=== PATIENT | female | born 1950 | race Hispanic/Latino ===

== ENCOUNTER 2017-06-29 09:13 | Outpatient (CLI) | payer MEDICARE | END 2017-06-29 09:14 | disposition home or self-care (01) | LOC: BICMAMMO 09:13 | PROVIDERS: ATTEND Family Medicine | DX: Z12.31 Encounter for screening mammogram for malignant neoplasm of breast (principal) | CPT/HCPCS: 77063; 77067 ==

== ENCOUNTER 2018-04-05 12:04 | Day surgery (SDC) | payer MEDICARE ==
[2018-04-04 08:25] VITALS: BMI 34.5
--- NOTE | 2018-04-04 22:11 | HP ---
SHORT STAY HISTORY AND PHYSICAL DATE OF ADMISSION: 04/05/2018 HISTORY OF PRESENT ILLNESS: Ms. Nanette Joshi is a very pleasant 67-year-old Latin-Chinese fema le referred to me by colonoscopy for colon cancer screening. When she came to the office, she was having abdominal pain over the last several weeks. The abdominal pain is over the epigastric area. The patient does have nausea. The pain persisted over the last three weeks. The patient ___ __. No history of fever or chills. The patient comes for an EGD for abdominal pain and for a colono scopy for colon cancer screening. ALLERGIES: CODEINE. SOCIAL HISTORY: The patient does not smoke or drink alcohol. MEDICAL ILLNESSES: 1. Hypertension. 2. Hyperlipidemia. 3. Chronic anxiety. 4. Chronic acid reflux. 5. Hyperlipidemia. 6. Osteoarthritis. 7. Coronary artery disease. 8. Peripheral neuropathy. PHYSICAL EXAMINATION: VITAL SIGNS: Pulse is 70, blood pressure 130/70. HEENT: Conjunctivae clear. CARDIOVASCULAR SYSTEM: First and second heart sounds normal. LUNGS: Clear to auscultation. ABDOMEN: Soft. No organomegaly. Abdomen is tender over the epigastric area and periumbilical area. There is no rebound or guarding. EXTREMITIES: Reveal no edema. ADMITTING DIAGNOSIS: A 67-year-old Latin-Chinese female with abdominal pain, nausea over the last t hree weeks. She also has history of colon polyps from before. The patient comes for EGD for abdomin al pain and also colonoscopy for colon cancer screening.
--- NOTE | 2018-04-06 01:34 | OP ---
DATE OF SURGERY: 04/05/2018 OPERATIVE PROCEDURE: Colonoscopy with biopsy. PREOPERATIVE DIAGNOSIS: A 67-year-old Latin-Sing[place]an female underwent colonoscopy for colon cancer s creening. POSTOPERATIVE DIAGNOSES: 1. Diffuse colonic diverticular disease. 2. Small sessile ascending colon polyp. 3. Hemorrhoids. PROCEDURE NOTE: The patient was placed on her left lateral position and was given sedation by Anesth esia department. A rectal exam was done before the scope was advanced into the rectum. No lesions f elt on rectal exam. A Pentax video colonoscope was introduced into the rectum and advanced all the w ay into the cecum. The prep was good. The mucosa appears normal throughout the colon with normal va scular pattern. The appendical orifice, ileocecal valve, cecum, no pathology seen. She has small se ssile ascending colon polyp removed with biopsy forceps. The hepatic flexure, transverse colon, sple florina flexure, descending colon, sigmoid colon, no other lesions seen except for scattered diverticula of the sigmoid colon all the way to the cecum. Rectal hemorrhoids.
--- NOTE | 2018-04-06 08:17 | OP ---
DATE OF PROCEDURE: 04/05/2018 OPERATIVE PROCEDURE: Esophagogastroduodenoscopy with biopsy. PREOPERATIVE DIAGNOSES: A 67-year-old Latin-Tristanian female with chronic acid reflux on omeprazole. She has had abdominal pain, nausea over the last several weeks. She underwent EGD. POSTOPERATIVE DIAGNOSES: 1. Edematous mucosa over the GE junction with esophageal erosion. 2. Otherwise, normal esophagogastroduodenoscopy. PROCEDURE NOTE: The patient was placed on left lateral position and was given sedation by Anesthesia Department. A Pentax video gastroscope under direct vision was passed down the oropharynx, past the GE junction, into the stomach and subsequently into the descending duodenum. The esophageal mucosa appears normal over the upper two-thirds. At the GE junction, the mucosa edematous and polypoid appearing. She also had linear erosion there. Retroflexion failed to show pathology in the fundus or cardia. The gastric body, gastric antrum, no pathology seen. The scope advanced into the duodenal bulb, descending duodenum. No pathology seen. The stomach was decompressed and the scope removed. DISCHARGE PLANNIN. This is a 67-year-old Latin-Tristanian female who came for EGD and colonoscopy. The EGD showed esophageal erosion and esophagitis. The colonoscopy showed a sessile polyp ascending colon. 2. Diffuse colonic diverticular disease. She underwent EGD and biopsy . DISCHARGE RECOMMENDATIONS: 1. Omeprazole 40 once a day. 2. She is advised to call me if she develops abdominal pain, hematochezia, or fever. 3. To come back to clinic in 2 weeks. MTDD
== END 2018-04-05 16:00 | disposition home or self-care (01) ==
LOC: SDC 12:04
PROVIDERS: ATTEND Internal Medicine Gastroenterology
PROC: 0DB48ZX Excision of Esophagogastric Junction, Via Natural or Artificial Opening Endoscopic, Diagnostic (ICD-10-PCS; principal; 2018-04-05)
PROC: 0DBK8ZX Excision of Ascending Colon, Via Natural or Artificial Opening Endoscopic, Diagnostic (ICD-10-PCS; 2018-04-05)
DX: Z12.11 Encounter for screening for malignant neoplasm of colon (principal); D12.2 Benign neoplasm of ascending colon; K57.31 Diverticulosis of large intestine without perforation or abscess with bleeding; K64.9 Unspecified hemorrhoids; K22.10 Ulcer of esophagus without bleeding; K21.9 Gastro-esophageal reflux disease without esophagitis; I10 Essential (primary) hypertension; E78.5 Hyperlipidemia, unspecified; F41.9 Anxiety disorder, unspecified; M19.90 Unspecified osteoarthritis, unspecified site; I25.10 Atherosclerotic heart disease of native coronary artery without angina pectoris; G62.9 Polyneuropathy, unspecified; Z79.82 Long term (current) use of aspirin; Z79.899 Other long term (current) drug therapy; Z88.5 Allergy status to narcotic agent; Z86.010 Personal history of colon polyps
CPT/HCPCS: 88305; 88312; 88313

== ENCOUNTER 2019-06-21 07:55 | Outpatient (CLI) | payer MEDICARE ==
--- NOTE | 2019-06-21 10:38 | MRI ---
MR of the right wrist without contrast INDICATION: History of right wrist pain for one month with concern for possible ganglion cyst. TECHNIQUE: Multiplanar multisequence MR images were obtained of the right wrist without IV or intra-a rticular contrast. A surface marker was placed in the region of palpable interest where there is concern for possible ganglion cyst. This was placed on the volar radial aspect of the right wrist at the level of the scaphoid. FINDINGS: No radiographic comparisons are available. There is [id number] radiocarpal joint effusion as well as a mid carpal joint effusion which is nonspecific. There are scattered areas of patchy marrow edema involving the wrist carpus as well as the volar aspect of the distal radius. There are areas of subchondral cystlike abnormality involving the carpal bones, particularly the proximal and distal scaphoid. There is mild fluid distention involving the FDP and FDS tendon sheath proximal to, within and slightly distal to the flexor retinac ulum. The median nerve has a normal appearance. There is also fluid distention involving the tendon sheath of the FPL tendon just distal to the flexor retinaculum. There is mild fluid distention also p resent involving the FCR tendon near the surface marker. No visible ganglion is evident. Mild fluid distention is seen involving the second dorsal extensor compartment. The remaining dorsal compartment s appear within normal limits. The TFC appears intact. The scapholunate, lunotriquetral and extrinsic ligaments appear intact. There is mild first CMC osteoarthrosis. IMPRESSION: 1. Radiocarpal and midcarpal joint effusion with patchy areas of marrow edema and subchondral cystlik e abnormality involving the wrist carpus is suspicious for the presence of an inflammatory arthropathy such as rheumatoid arthritis. Erosive osteoarthritis or possibly crystalline arthropathy could induce a similar appearance. 2. There is suspected reactive tenosynovitis involving the FDP, FDS, FPL and FCR flexor tendons in ad dition to the second dorsal extensor compartment. 3. No ganglion cyst is seen underlying the palpable region of interest. Mild tenosynovitis is seen in volving the FCR tendon near the surface marker. This may be what is being palpated on clinical exam. 4. The TFC is intact. The intrinsic and extrinsic ligaments of the wrist appear intact.
== END 2019-06-21 07:56 | disposition home or self-care (01) ==
LOC: SCSMRI 07:55
PROVIDERS: ATTEND Orthopaedic Surgery
DX: M67.40 Ganglion, unspecified site (principal); M25.431 Effusion, right wrist; R60.0 Localized edema; M65.831 Other synovitis and tenosynovitis, right forearm

== ENCOUNTER 2019-10-08 06:24 | Outpatient (CLI) | payer MEDICARE, OTHER ==
[2019-10-08 17:18] LABS: #Basophils 0.1 thou/uL (0.0-0.2); #Lymphocytes 2.5 thou/uL (1.20-3.40); #Monocytes 0.7 thou/uL (0.11-0.59); #Neutrophils 2.9 thou/uL (1.40-6.50); %Basophils 0.9 % (0.0-1.0); %Eosinophils 0.5 % (0.0-10.0); %Lymphocytes 40.6 % (21.0-51.0); %Monocytes 11.4 % (0.0-10.0); %Neutrophils 46.6 % (42.0-75.0); Hemoglobin 14.1 g/dL (12.0-16.0); Mean Corpuscular HGB CONC 32.3 g/dL (32.0-36.0); Mean Corpuscular Hemoglobin 30.5 pg (27.0-31.0); Mean Corpuscular Volume 94.4 fL (78.0-98.0); Mean Platelet Volume 8.8 fL (7.4-10.4); Platelet Count 246 thou/uL (130-400); RBC Distribution Width 12.3 % (11.5-14.5); Red Blood Cell (RBC) Count 4.61 mill/uL (4.20-5.40); White Blood Cell (WBC) Count 6.1 thou/uL (4.8-10.8)
[2019-10-08 17:43] LABS: Anion Gap 14 mmol/L (10-20); BUN (Urea Nitrogen) 13 mg/dL (9.8-20.1); Calc. Creatinine Clearance 0 mL/min (70-130); Calcium 9.4 mg/dL (7.8-10.44); Carbon Dioxide 25 mmol/L (23-31); Chloride 105 mmol/L (98-107); Estimated GFR-MDRD 68; Glucose 100 mg/dL (83-110); Potassium 4.2 mmol/L (3.5-5.1); Sodium 140 mmol/L (136-145)
[2019-10-09 11:35] LABS: SARS-CoV-2 MS2 Positive; SARS-CoV-2 N Gene Negative; SARS-CoV-2 S Gene Negative; SARS-CoV-2 orf1ab Negative
--- NOTE | 2019-10-09 20:10 | EKG ---
Test Reason : Blood Pressure : / mmHG Vent. Rate : 063 BPM Atrial Rate : 063 BPM P-R Int : 136 ms QRS Dur : 080 ms QT Int : 420 ms P-R-T Axes : 055 051 057 degrees QTc Int : 429 ms Normal sinus rhythm Normal ECG When compared with ECG of 17-OCT-2012 14:40, Vent. rate has decreased BY 47 BPM T wave amplitude has decreased in Anterior leads Confirmed by OMAR HERNANDEZ, SEdwar ([id number]) on 10/09/2019 8:10:23 PM Referred By: JEFF Confirmed By:DR. Tip NELSON MD
== END 2019-10-08 06:25 | disposition home or self-care (01) ==
LOC: LABBT 06:24
PROVIDERS: ATTEND Orthopaedic Surgery
DX: Z01.818 Encounter for other preprocedural examination (principal); Z11.59 Encounter for screening for other viral diseases; G56.01 Carpal tunnel syndrome, right upper limb
CPT/HCPCS: 80048; 85025; 93005; U0003; 87635; 93010

== ENCOUNTER 2019-10-10 07:20 | Day surgery (SDC) | payer MEDICARE ==
--- NOTE | 2019-10-09 13:28 | HP ---
HISTORY OF PRESENT ILLNESS: The patient is a 69-year-old female with a several-month history of pain, tingling and weakness in her right hand without injury. She has had persistent symptoms despite restriction of activities, splinting, and anti-inflammatory medication. PAST MEDICAL HISTORY: The patient has a history of atherosclerotic cardiovascular disease, hypertension, high cholesterol, and osteoarthritis. CURRENT MEDICATIONS: Include, 1. Low-dose aspirin. 2. Metoprolol. 3. Coenzyme Q. 4. Omeprazole. 5. Naproxen. 6. Multivitamins. 7. Gabapentin. ALLERGIES: SHE IS ALLERGIC TO CODEINE. FAMILY HISTORY: Otherwise unremarkable. SOCIAL HISTORY: Otherwise unremarkable. REVIEW OF SYSTEMS: Otherwise unremarkable. PHYSICAL EXAMINATION: GENERAL: Reveals a healthy female. HEENT: Unremarkable. NECK: Supple. CHEST: Clear. HEART: Regular rate and rhythm. ABDOMEN: Soft, nontender. PELVIC: Deferred. RECTAL: Deferred. BREASTS: Deferred. EXTREMITIES: Pertinent findings with the right hand and wrist. There is a questionable 1 cm mass or thickening over the volar radial aspect of the right wrist. No definite tenderness. There are scattered arthritic changes in several IP joints of several fingers. Examination of her wrist reveals no bony tenderness. There is tenderness over the median nerve. There is mild limitation of motion. There is no instability. There is a positive Tinel sign over the median nerve and equivocal Phalen's test. There is decreased sensation in median nerve distribution. There are good distal pulses. Nerve conduction studies reveal [id number] right carpal tunnel syndrome. DIAGNOSTIC DATA: X-rays reveal mild degenerative changes. MRI scan of the right wrist reveals some arthritic changes and tenosynovitis, but no soft tissue mass. IMPRESSION: 1. Right carpal tunnel syndrome. 2. Degenerative arthritis, right wrist. PLAN: Endoscopic, possible open right carpal tunnel release. The nature of the surgery, length of recovery, and potential complications such as infection, loss of motion, incomplete relief, nerve injury, recurrence, need for additional treatment, and repeat surgery have been discussed in detail. Job ID: [id number]
[2019-10-10] MEDS ORDERED: Lidocaine 1% (PF) 30 ML VIAL ONE (08:58)
[2019-10-10] MEDS ORDERED: Fentanyl 100 MCG/2 ML VIAL ONE (09:10)
--- NOTE | 2019-10-10 10:44 | OP ---
DATE OF PROCEDURE: 10/10/2019 ANESTHESIA: General. PREOPERATIVE DIAGNOSIS: Right carpal tunnel syndrome. POSTOPERATIVE DIAGNOSIS: Right carpal tunnel syndrome. PROCEDURE PERFORMED: Right endoscopic carpal tunnel release. DESCRIPTION OF PROCEDURE: After satisfactory anesthesia was induced, in supine position, the patient was prepped and draped in routine manner. The right arm was elevated and exsanguinated with Esmarch bandage and the tourniquet inflated to 250 mmHg. A 2-cm transverse incision was made in the proximal wrist flexion crease, carried down through the subcutaneous tissues and bleeding points were controlled with Bovie cautery. Using sharp and blunt dissection, a distally based flap at the deep forearm fascia was developed and retracted distally. Palmaris longus tendon was retracted radially. Proximal edge of the deep forearm fascia was split under direct visualization, making sure there was no proximal impingement of the median nerve. Synovial elevator was introduced beneath the transverse carpal ligament and the synovium cleaned from the under surface. Carpal tunnel dilators were inserted. The Knoe endoscopic carpal tunnel system was introduced beneath the transverse carpal ligament inline with the ring finger. The distal edge of the ligament was easily identified and divided in a distal to proximal direction by pulling the trigger of the assembly and engaging the knife and withdrawing the scope proximally. This was done in several stages to make sure there was complete division of the transverse carpal ligament, which was documented with the video printer. After withdrawing the scope, a carpal tunnel dilator could be inserted in the carpal tunnel. There was markedly improved passage and subcutaneous position of the instrument. The scope was reintroduced into the carpal tunnel. There was wide separation of the 2 leaves of the transverse carpal ligament. The tourniquet was released after 4 minutes. There was no excessive bleeding and the scope was withdrawn. The wound was thoroughly irrigated and closed with running subcuticular 3-0 nylon. A sterile dressing was applied and the patient immobilized in a Velcro wrist splint and taken from the operating room in stable condition. There were no apparent intraoperative complications. The estimated blood loss was negligible. The patient will be discharged home in satisfactory condition, instructed on ice and elevation, given written wound care instructions. She has a prescription for tramadol for pain, 15 tablets. She will be rechecked in my office in 10 to 14 days or sooner if there are any problems prior to that time. Job ID: [id number]
[2019-10-10] MEDS ORDERED: Ondansetron PF 4 MG/2 ML Vial ONE (11:09)
[2019-10-10] MEDS ORDERED: PROPOFOL 200 MG/20 ML VIAL ONE (11:09)
== END 2019-10-10 11:38 | disposition home or self-care (01) ==
LOC: SDC 07:20
PROVIDERS: ATTEND Orthopaedic Surgery
PROC: 01N54ZZ Release Median Nerve, Percutaneous Endoscopic Approach (ICD-10-PCS; principal; 2019-10-10)
DX: G56.01 Carpal tunnel syndrome, right upper limb (principal); I25.10 Atherosclerotic heart disease of native coronary artery without angina pectoris; I10 Essential (primary) hypertension; E78.00 Pure hypercholesterolemia, unspecified; M19.039 Primary osteoarthritis, unspecified wrist; Z79.82 Long term (current) use of aspirin; Z79.899 Other long term (current) drug therapy; Z88.5 Allergy status to narcotic agent
CPT/HCPCS: J0690; J2001; J2405; J2704; J3010

== ENCOUNTER 2020-04-17 09:02 | Outpatient (CLI) | payer MEDICARE ==
--- NOTE | 2020-04-17 09:45 | MMO ---
Bilateral MAMMO Bilat Screen [facility]. CLINICAL HISTORY: Patient is 69 years old and is seen for screening. The patient has no family history of breast cancer. The patient has no personal history of cancer. VIEWS: The views performed were: bilateral craniocaudal with tomosynthesis and bilateral mediolateral oblique with tomosynthesis. FILMS COMPARED: The present examination has been compared to prior imaging studies performed at [facility] on 07/09/2010, 07/27/2011, 06/23/2015 and 06/29/2017. This study has been interpreted with the assistance of computer-aided detection. MAMMOGRAM FINDINGS: There are scattered fibroglandular densities. There are no suspicious masses, suspicious calcifications, or new areas of architectural distortion. IMPRESSION: THERE IS NO MAMMOGRAPHIC EVIDENCE OF MALIGNANCY. A ROUTINE FOLLOW-UP MAMMOGRAM IN 1 YEAR IS RECOMMENDED. THE RESULTS OF THIS EXAM WERE SENT TO THE PATIENT. ACR BI-RADS Category 1 - Negative MAMMOGRAPHY NOTE: 1. A negative mammogram report should not delay a biopsy if a dominant of clinically suspicious mass is present. 2. Approximately 10% to 15% of breast cancers are not detected by mammography. 3. Adenosis and dense breasts may obscure an underlying neoplasm. Reported by: JILLIAN CHRISTOPHER MD Electonically Signed: [id number]
== END 2020-04-17 09:03 | disposition home or self-care (01) ==
LOC: BICMAMMO 09:02
PROVIDERS: ATTEND Family Medicine
DX: Z12.31 Encounter for screening mammogram for malignant neoplasm of breast (principal)
CPT/HCPCS: 77063; 77067

== ENCOUNTER 2020-08-12 12:37 | Outpatient (CLI) | payer MEDICARE | END 2020-08-12 12:38 | disposition home or self-care (01) | LOC: ULT 12:37 | PROVIDERS: ATTEND Family Medicine | DX: R55 Syncope and collapse (principal); I08.1 Rheumatic disorders of both mitral and tricuspid valves | CPT/HCPCS: 93306; 93880 ==

== ENCOUNTER 2023-08-24 09:49 | Outpatient (CLI) | payer OTHER | END 2023-08-24 09:50 | disposition home or self-care (01) | LOC: BICMAMMO 09:49 | PROVIDERS: ATTEND Family Medicine | DX: Z12.31 Encounter for screening mammogram for malignant neoplasm of breast (principal); Z13.820 Encounter for screening for osteoporosis; M81.0 Age-related osteoporosis without current pathological fracture; M85.851 Other specified disorders of bone density and structure, right thigh; Z78.0 Asymptomatic menopausal state | CPT/HCPCS: 77063; 77067; 77080 ==